=== PATIENT | female | born 1985 | race Caucasian/White ===

== ENCOUNTER 2017-11-26 05:47 | Observation (INO) ==
[2017-11-26] MEDS ORDERED: CALCIUM GLUCONATE 4.65mEq/10ml INJECTION IV PRN (05:54)
[2017-11-26] MEDS ORDERED: MAGNESIUM SULFATE 6gm PREMIX 6 GM/100 ML BAG IV ONE (05:54)
[2017-11-26] MEDS ORDERED: SALINE FLUSH 10ml SYRINGE IV PRN (05:54)
[2017-11-26] MEDS ORDERED: LIDOCAINE 1% (10mg/ml) 2mL INJ PF SDV ID ONE (05:54)
[2017-11-26] MEDS ORDERED: BETAMETHASONE 30 MG/5 ML INJECTION IM SCH (06:00)
[2017-11-26 06:37] VITALS: BMI 27.9
[2017-11-26 06:48] VITALS: BP 111/72; PULSE 93; RESP 16; TEMP 98; O2SAT 97
[2017-11-26] MEDS: MAGNESIUM SULFATE DRIP 20 GM/500 ML BAG IV SCH ×2 (06:50→16:37)
== END 2017-11-26 18:59 | disposition home or self-care (01) ==
LOC: OBOBS 05:47 → MC 05:47
PROVIDERS: ADMIT Obstetrics & Gynecology; ATTEND Obstetrics & Gynecology

== ENCOUNTER 2017-12-18 12:00 | Inpatient (IN) ==
[2017-12-25] MEDS ORDERED: FAMOTIDINE PB 20 MG/50 ML BAG IV ONE (10:13)
[2017-12-25] MEDS ORDERED: CITRIC ACID/SODIUM CITRATE 30ml PO ONE (10:13)
[2017-12-25] MEDS ORDERED: CEFAZOLIN PREMIX (MC ONLY) 2 GM/50 ML BAG IV ONE (10:14)
[2017-12-25] MEDS ORDERED: NOZIN NASAL SWAB NAS ONE (10:14)
[2017-12-25] MEDS: LR 1,000 ML IV SCH ×2 (10:45→12:27)
--- OUTSIDE RECORDS SUMMARY | 2017-12-25 10:47 | External Medical Summary | Continuity of Care Document ---
:1985 Author Organization [facility] Address [address] [place], [place] [id number] Phone Care Team Providers Name Role Phone Angus Armenta MD Unavailable Unavailable Allergies, Adverse Reactions, Alerts Substance Reaction Severity Status No Known Drug Allergies Unknown Active Medications Medication Instructions Dosage Effective Dates Status Comments (start - stop) ferrous sulfate 325 take 1 tablet by oral 325 MG - Active mg (65 mg iron) route 2 times every tablet day C-Augustin DHA 28 mg-1 TAKE 1 CAPSULE BY ORAL - Active mg-200 mg capsule ROUTE EVERY DAY Diclegis 10 mg-10 mg take 1 tablet by oral - Active tablet,delayed route every day in release the morning, 1 tablet in the mid-afternoon, and 2 tablets at bedtime Tylenol 325 mg tablet take 3 tablet by ORAL 975 MG - Active route every 4 days as needed as needed Problems Condition Effective Dates (start - stop) Clinical Status Follow-Up, Routine - Supervision of other high risk - pregnancies, second trimester Twin , - dichorionic/diamniotic, second trimester 15 weeks gestation of - Supervision of other high risk - pregnancies, second trimester Twin , - dichorionic/diamniotic, second trimester 18 weeks gestation of - Supervision of other high risk - pregnancies, first trimester Twin , - dichorionic/diamniotic, first trimester 11 weeks gestation of - Supervision of other high risk - pregnancies, first trimester Twin , - dichorionic/diamniotic, first trimester Pap Smear Screening, Cervix - 9 weeks gestation of - Supervision of other high risk - pregnancies, first trimester Twin , - dichorionic/diamniotic, first trimester 11 weeks gestation of - Supervision of other high risk - pregnancies, second trimester Twin , - dichorionic/diamniotic, second trimester 22 weeks gestation of - Supervision of other high risk - pregnancies, second trimester Twin , - dichorionic/diamniotic, second trimester 18 weeks gestation of - Supervision of other high risk - pregnancies, second trimester Twin , - dichorionic/diamniotic, second trimester 26 weeks gestation of - Supervision of other high risk - pregnancies, third trimester Twin , - dichorionic/diamniotic, third trimester 28 weeks gestation of - Supervision of other high risk - pregnancies, third trimester Mild to moderate pre-eclampsia, third - trimester Twin , - dichorionic/diamniotic, third trimester 33 weeks gestation of - Supervision of other high risk - pregnancies, third trimester Twin , - dichorionic/diamniotic, third trimester 30 weeks gestation of - Supervision of other high risk - pregnancies, third trimester Mild to moderate pre-eclampsia, third - trimester Twin , - dichorionic/diamniotic, third trimester 32 weeks gestation of - Supervision of other high risk - pregnancies, third trimester Mild to moderate pre-eclampsia, third - trimester Twin , - dichorionic/diamniotic, third trimester 35 weeks gestation of - Supervision of other high risk - pregnancies, third trimester Mild to moderate pre-eclampsia, third - trimester Twin , - dichorionic/diamniotic, third trimester 31 weeks gestation of - Supervision of other high risk - pregnancies, third trimester Mild to moderate pre-eclampsia, third - trimester Twin , - dichorionic/diamniotic, third trimester 34 weeks gestation of - Supervision of other high risk - pregnancies, third trimester Mild to moderate pre-eclampsia, third - trimester Twin , - dichorionic/diamniotic, third trimester 34 weeks gestation of - Supervision of other high risk - pregnancies, third trimester Twin , - dichorionic/diamniotic, third trimester 30 weeks gestation of - Mild to moderate pre-eclampsia, third - trimester Mild to moderate pre-eclampsia, third - trimester Twin , - dichorionic/diamniotic, third trimester 34 weeks gestation of - Twin , - dichorionic/diamniotic, second trimester 26 weeks gestation of - Active Procedures Procedure Date Unknown Results Test Name Date and Time Measure Units Reference Range Abnormal Flag Comments Unknown Advance Directives Directive Yes / No Effective Date File Name Unknown Encounters Encounter Practice Location Reason(s) Diagnoses Date Provider Care Team Description For Visit Members [facility] Supervision of Valorie Referring In Womens other high 1-201 Mayra. Provider: Health PA, risk 8 700 [address], pregnancies, Medical Coppola J, [place], [place], third Center 700 [id number], trimesterMiDuc goss Dr Medical [place] to moderate 120, Center tel:21 pre-eclampsia, Duc [place] 120, [address] third [facility] VALDEZ trimesterTwin [id number] [place], , , [place]. [id number]. dichorionic/di tel: tel:, [phone] third [email or web address] weeks gestation of [facility] Supervision of May-1 Valorie Referring In Womens other high 6-201 Mayra. Provider: Health PA, risk 8 700 [address], pregnancies, Medical Supriya Parekh [place], third Center 700 , trimesterMild , [facility] [place] to moderate 120, Center tel:+21 pre-eclampsia, [place], Duc 120, [address] third [place], [place], trimesterTwin [id number] [place], , , [place]. [id number]. dichorionic/di tel: tel:[phone] amniotic, [phone] third [email or web address] weeks gestation of [facility] Mild to May-1 Valorie Referring In Womens Ultrasound moderate 6-201 Mayra. Provider: Health PA, pre-eclampsia, 8 700 [address], third Medical Supriya Parekh [place], trimesterTwin Center 700 [id number], , , [facility] dichorionic/di 120, Center tel:+21 amniotic, [place], Duc 120, [address] third [place], [place], [id number] [place], weeks , [place]. [id number]. gestation of tel: tel:[phone] [facility] Supervision of May-1 Valorie Referring In Womens other high 1-201 Mayra. Provider: Health PA, risk 8 700 [address], pregnancies, Supriya Powers [place], third Center 700 [id number], trimesterMild Dr [facility] [place] to moderate 120, Center tel:21 pre-eclampsia, [place], Duc 120, [address] third [place], [place], trimesterTwin [id number] [place], , , [place]. [id number]. dichorionic/di tel: tel:+316 amniotic, [phone] third [email or web address] weeks gestation of [facility] Supervision of May-0 Valorie Referring In Womens other high 7-201 Mayra. Provider: Health PA, risk 8 700 [address], pregnancies, Supriya Powers [place], third Center 700 , trimesterMild , [facility] [place] to moderate 120, Center tel:+21 pre-eclampsia, [place], [facility] 120, [address] third [place] trimesterTwin [id number] [place], , , [place]. [id number]. dichorionic/di tel: tel:+316 amniotic, [phone] third [email or web address] weeks gestation of [facility] May-0 Gian Referring In Womens 4-201 Pedro. 700 Provider: Health STEFANO, 8 Medical [place] [address], Center Supriya Parekh [place], , [place] [id number], 120, Medical [place], [place] tel:+21 [place], [facility] 120, [id number] [place], , . [place], tel:[phone]. [id number] tel:[phone] [facility] Mild to May-0 Porter Referring In Womens moderate 3-201 Frances. Provider: Health STEFANO, pre-eclampsia, 8 700 [address], third [facility] Supriya [place], [place], trimester Center 700 [id number], , [facility] 120, [place] tel:+21 [facility] 120, [address] [place], [id number] [place], , [place]. [id number]. tel: tel:[phone] [facility] Supervision of Apr-3 Valorie Referring In Womens other high 0-201 Mayra. Provider: Health STEFANO, risk 8 700 [address], pregnancies, Medical Supriya [place], [place], third Center 700 [id number], trimesterMiana paula Smyth, [facility] to moderate 120, Center tel:+21 pre-eclampsia, Jim[place], [facility] 120, [address] third Jimenez VALDEZ trimesterTwin [id number] [place], , , [place]. [id number]. dichorionic/di tel: tel:+316 amniotic, [phone] third [email or web address] weeks gestation of [facility] Supervision of Apr-2 Valorie Referring In Womens other high 5-201 Mayra. Provider: Health STEFANO, risk 8 700 [address], pregnancies, Medical Abdon Cross, Supriya, JOSÉ MIGUEL, third Center 700 [id number], Akosua Smyth, [facility] to moderate 120, Center tel:[phone] pre-eclampsia, [place], Duc 120, [address] third [place], [place], trimesterTwin [id number] [place], , , [place]. [id number]. dichorionic/di tel: tel:[phone] amniotic, [phone] third [email or web address] weeks gestation of [facility] Supervision of Apr-1 Valorie Referring In Womens other high 8-201 Mayra. Provider: Health PA, risk 8 700 [address], pregnancies, [place], Supriya, [place], third Center 700 , Bro Smyth, [facility] , 120, [place] tel:+21 dichorionic/di Jim[place], Duc 120, [address] amniotic, [place], [place], third [id number] [place], [id number] , [place]. [id number]. weeks tel:+08-27 tel:+-316 gestation of [phone] [facility] Supervision of Apr-1 Valorie Referring In Womens Ultrasound other high 8-201 Mayra. Provider: Health PA, risk 8 700 [address], pregnancies, [place], Supriya, [place], third Center 700 [id number], Bro Smyth, [facility] , 120, Center tel:+21 dichorionic/di Jimenez, Duc 120, [address] amniotic, [place], [place], third [id number] [place], [email or web address] , [place]. [id number]. weeks tel:+08-27 tel:+-316 gestation of [phone] [facility] Supervision of Apr-0 Valorie Referring In Womens other high 4-201 Mayra. Provider: Health PA, risk 8 700 [address], pregnancies, [place], [place], [place], third Center 700 [id number], Bro Smyth, [facility] , 120, Center tel:+21 dichorionic/di Jimenez, Duc 120, [address] amniotic, [place], [place], third [id number] [place], [email or web address] , [place]. [id number]. weeks tel: tel:+316 gestation of [phone] [facility] Mar-2 Valorie In Womens 2-201 Mayra. Health STEFANO, 8 700 [address], Medical [place], [place], Center [id number], , [facility] [place] 120, tel: [place], [address] [place], [id number] , [place]. tel: [phone] Ginny [place] Supervision of Mar-2 Valorie Referring In Womens other high 1-201 Mayra. Provider: Health STEFANO, risk 8 700 [address], pregnancies, Supriya Powers [place], second Center 700 [id number], trimesterTwin , [facility] , 120, Center tel: dichorionic/di Jimenez, Duc 120, [address] amniotic, [place], [place], second [id number] [place], , [place]. [id number]. weeks tel: tel:+316 gestation of [phone] [facility] Twin Mar-2 Valorie Referring In Womens Ultrasound , 1-201 Mayra. Provider: Health STEFANO, dichorionic/di 8 700 [address], amniotic, Supriya Powers [place], second Center 700 [id number], [email or web address] , [facility] weeks 120, Center tel:21 gestation of [place], Duc 120, [address] [place], [place], [id number] [place], , [place]. [id number]. tel: tel:+ [phone] Ginny [place] Mar-1 Valorie In Womens 2-201 Mayra. Health STEFANO, 8 700 [address], [facility] [place], Center [id number], , [facility] 120, tel:+21 [place], [address] [place], [id number] , [place]. tel: [phone] Ginny [place] Supervision of Feb-2 Valorie Referring In Womens other high 1-201 Mayra. Provider: Health STEFANO, risk 8 700 [address], pregnancies, Supriya Powers JOSÉ MIGUEL, second Center 700 , Bor Smyth, [facility] , 120, Center tel:+ dichorionic/di [place], Duc 120, [address] amniotic, [place], [place], second [id number] [place], [email or web address] , [place]. [id number]. weeks tel:+31 tel:+316 gestation of [phone] [facility] Supervision of Valorie Referring In Womens other high 4-201 Mayra. Provider: Health PA, risk 8 700 [address], pregnancies, Supriya Powers, JOSÉ MIGUEL, second Center 700 , Bro Smyth, [facility] , 120, [place] tel: dichorionic/di Jim[place], Duc 120, [address] amniotic, [place], [place], second [id number] [place], [id number] , [place]. [id number]. weeks tel:+08-27 tel:+ gestation of [phone] [facility] Supervision of Valorie Referring In Womens Ultrasound other high 4-201 Mayra. Provider: Health PA, risk 8 700 [address], pregnancies, [place] Supriya, JOSÉ MIGUEL, second Center 700 [id number], Bro Smyth, [facility] , 120, [place] tel: dichorionic/di [place], Duc 120, [address] amniotic, [place], [place], second [id number] [place], [email or web address] , [place]. [id number]. weeks tel:+08-27 tel:+316 gestation of [phone] [facility] Supervision of 0 Valorie Referring In Womens other high 3-201 Mayra. Provider: Health PA, risk 8 700 [address], pregnancies, [place] Supriya, JOSÉ MIGUEL, second Center 700 , Bro Smyth, [facility] , 120, [place] tel:+ dichorionic/di [place], Duc 120, [address] amniotic, [place], [place], second [id number] [place], [email or web address] , [place]. [id number]. weeks tel:+31 tel:+-316 gestation of [phone] [facility] Supervision of Dec-0 Valorie Referring In Womens other high 6-201 Mayra. Provider: Health PA, risk 7 700 [address], pregnancies, [place] Cross [place], first Center 700 , Bro Smyth, [facility] , 120, Center tel: dichorionic/di Jimenez, Duc 120, [address] amniotic, [place], [place], first [id number] [place], [email or web address] , [place]. [id number]. weeks tel: tel:+316 gestation of [phone] [facility] Supervision of Dec-0 Valorie Referring In Womens Ultrasound other high 6-201 Mayra. Provider: Health PA, risk 7 700 [place] [address], pregnancies, Mazin Coppola Supriya Cross [place], first Center 700 , Bro Smyth, [facility] , 120, Center tel: dichorionic/di Jimenez, Duc 120, [address] amniotic, [place], [place], first [id number] [place], [email or web address] , [place]. [id number]. weeks tel: tel: gestation of [phone] [facility] Supervision of Nov-2 Valorie Referring In Womens other high 2-201 Mayra. Provider: Health PA, risk 7 700 [address], pregnancies, Mazin Coppola Supriya Cross, [place], first Center 700 [id number], Bro Smyth, [facility] , 120, Center tel:21 dichorionic/di Jimenez, Duc 120, [address] amniotic, [place], [place], first [id number] [place], trimesterPap , [place]. [id number]. Smear tel: tel: Screening, [phone] Cervix9 weeks gestation of [facility] Sep-0 Valorie Referring In Womens Follow-Up, 7-201 Mayra. Provider: Health PA, Routine 6 700 [address], Supriya Powers [place], Center [facility] [id number], Dr [facility] 120, [place] tel:21 Jim[place] [facility] 120, [address] [place], [place], [id number] [place], , [place]. [id number]. tel: tel:+ [phone] [facility] November- Valorie Referring In Womens 9-201 Mayra. Provider: Health PA, 6 700 [address], Medical [place], [place], [place] [id number], , [facility] 120, [place] [address] tel:+[phone] [place], [facility] 120, [address] [place], [place], [id number] [place], , [place]. [id number]. tel: tel: [phone] [facility] Jul-0 Coppola In Womens 4-201 Lucille. Health PA, 6 700 [address], [place], [place], [place] [id number], , [facility] 120, tel:+21 [place], [address] [place], [id number] , [place]. tel: [phone] Family History Family Member Diagnosis Age At Onset No family history of Breast Cancer No family history of Uterine Cancer No family history of Diabetes No family history of Lung Disease No family history of Epilepsy No family history of Kidney Disease No family history of Hypertension No family history of Colon Cancer No family history of Osteoporosis No family history of Thyroid Disorder No family history of Venous Thrombosis No family history of Stroke No family history of Ovarian Cancer No family history of Cardiovascular Disease No family history of Pulmonary Embolism Immunizations Vaccine Date Status Comments Tdap completed Source: New Immunization Record Influenza, injectable, completed Source: Other Provider quadrivalent, preservative free, 3 yrs or older Tdap completed Source: New Immunization Record Payers Payer name Insurance type Covered alliance party ID Authorization(s) [employer] CI [id number] [employer] CI [id number] [employer] CI [id number] Social History Type Description Quantity Date Captured Alcohol Use Details No Caffeine Use Details Unknown Tobacco Use Status Unknown Smoking Status Never smoker Vital Signs Date / Height Weight BMI Pulse Blood Temperature Respiratory Body Head BMI Time: Rate Pressure Rate Surface Circumference percentile Area Unknown Chief Complaint And Reason For Visit Unknown Chief Complaint And Reason For Visit Reason For Referral Reason For Referral Unknown Plan Of Care Date Type Action Status Appointment Britta Samson BOOKED [place]ment Britta Sams[place] [facility] [place] Future Order: Radiology Order Ultrasound < 14 wks ([id number]) Ordered Future Order: Radiology Order OB Detailed Complete Ultrasound Ordered ([id number]) Future Order: Radiology Order Complete OB Ultrasound > 14 Ordered Weeks ([id number]) Future Order: Radiology Order Ultrasound OB Follow-up ([id number]) Ordered Future Order: Radiology Order Ultrasound OB Follow-up ([id number]) Ordered Future Order: Radiology Order Ultrasound OB Follow-up ([id number]) Ordered Date Type Problem Goal Intervention Status Start Date Unknown. History Of Present Illness Encounter Date Complaint History Of Present Illness This patient has no known history of present illness Functional Status Encounter Date Functional Assessment Cognitive Assessment Unknown Medications Administered Medication Instructions Dosage Effective Dates (start - stop) Status Comments Drug Treatment Unknown Instructions Date Instruction Additional Information HIV and other routine tests risk factors identified by history anticipated course of care nutrition and weight gain counseling, special diet toxoplasmosis precautions (cats / raw meat) sexual activity exercise indications for ultrasound influenza vaccine environmental / work hazards travel use of any medications (including supplements, vitamins, herbs, OTC drugs) domestic violence seat belt use childbirth classes / hospital facilities hospital registration genetic testing new ob handbook Giving encouragement to exercise Related to Body mass index 27.0-27.9
--- OUTSIDE RECORDS SUMMARY | 2017-12-25 10:47 | External Medical Summary | Continuity of Care Document ---
:1985 Author Organization [facility] Address [address] [place], [place] [id number] Phone Care Team Providers Name Role Phone [...] of Valorie Referring In Womens other high 6-201 Mayra. Provider: Madi AGARWAL, risk 8 700 [place] [address], pregnancies, Supriya Powers [place], [facility] Center 700 [id number], trimesterMild , [facility] [place] to moderate 120, [place] tel:+21 [facility]-eclampsia, [facility], [address] third [place], Jimenez trimesterTwin [id number] [place], , , [place]. [id number]. dichorionic/di tel: tel: amniotic, [phone] third [id number] weeks gestation of [facility] Jimenez Mild to November- Valorie Referring In Womens Ultrasound moderate 6-201 Mayra. Provider: Madi AGARWAL, pre-eclampsia, 8 700 [place] [address], third Supriya Powers [place], trimesterTwin Center 700 , , Dr, [facility] dichorionic/di 120, Center tel:+21 amniotic, [place], Duc 120, [address] third [place], [place], [id number] [place], weeks , [place]. [id number]. gestation of tel: tel:[phone] [facility] Jimenez Supervision of Valorie Referring In Womens other high 1-201 Mayra. Provider: Health PA, risk 8 700 Lucille [address], pregnancies, Medical Supriya Parekh [place], third Center 700 , trimesterMild , [facility] to moderate 120, Center tel:+21 pre-eclampsia, [place], Duc 120, [address] third [place], [place], trimesterTwin [id number] [place], , , [place]. [id number]. dichorionic/di tel: tel:+-316 amniotic, [phone] third [id number] weeks gestation of [facility] Jimenez Supervision of November-0 Valorie Referring In Womens other high 7-201 Mayra. Provider: Health PA, risk 8 700 [place] [address], pregnancies, Supriya Powers [place], third Center 700 , trimesterMiana paula Smyth [facility] to moderate 120, Center tel:+21 pre-eclampsia, [place], Duc 120, [address] third [place], [place], trimesterTwin [id number] [place], , , [place]. [id number]. dichorionic/di tel: tel:+-316 amniotic, [phone] third weeks gestation of [facility] Jimenez Mild to May-0 Porter Referring In Womens moderate 3-201 Frances. Provider: Health PA, pre-eclampsia, 8 700 [address], third Supriya Powers [place], trimester Center 700 , Dr [facility] 120, Center tel:+21 [place], Duc 120, [address] [place], [place], [id number] [place], , [place]. [id number]. tel: tel:[phone] Ginny [place] Supervision of Apr-3 Valorie Referring In Womens other high 0-201 Mayra. Provider: Health PA, risk 8 700 [address], pregnancies, [place], third Center 700 [id number], trimesterMiana paula Smyth, [facility] to moderate 120, Center tel:+21 pre-eclampsia, Jimenez, Duc 120, [address] third JOSÉ MIGUEL, Jimenez trimesterThammad [id number] [place], , , [place]. [id number]. dichorionic/di tel: tel:+316 amniotic, [phone] third weeks gestation of [facility]enez Apr-2 Valorie Referring In Womens 8-201 Mayra. Provider: Health PA, 8 700 Luc[address], Mazin Supriya Par[place], [place], Center 700 [id number], Dr [facility] [place] 120, Center tel:+21 Jimenez [facility] 120, [address] [place], [id number] [place], , [place]. [id number]. tel: tel:[phone] Ginny [place] Supervision of Apr-2 Valorie Referring In Womens other high 5-201 Mayra. Provider: Health PA, risk 8 700 Lucille [address], pregnancies, [place], [place], third Center 700 , trimesterZac Smyth, [facility] to moderate 120, Center tel:21 pre-eclampsia, Jimenez, Duc 120, [address] third Jimenez VALDEZ trimesterTwin [id number] [place], , , [place]. [id number]. dichorionic/di tel: tel:+316 amniotic, [phone] third [id number] weeks gestation of [facility] Jimenez Supervision of Apr-1 Valorie Referring In Womens other high 8-201 Mayra. Provider: Health PA, risk 8 700 Lucille [address], pregnancies, [place], third Center 700 [id number], trimesterRobin Smyth, [facility] [place] , 120, Center tel:73078 dichorionic/di Jimenez, Duc 120, [address] amniotic, [place], [place], third [id number] [place], [email or web address] , [place]. [id number]. weeks tel:+08-27 tel:+1-316 gestation of [phone] [facility] Supervision of Apr-1 Valorie Referring In Womens Ultrasound other high 8-201 Mayra. Provider: Health PA, risk 8 700 [address], pregnancies, Medical [place], third Center [facility] , Bro Smyth, [facility] , 120, Herminie tel:+21 dichorionic/di Jimenez, Duc 120, [address] amniotic, [place], [place], third [id number] [place], [email or web address] , [place]. [id number]. weeks tel:+08-27 tel:+1-316 gestation of [phone] [phone] [facility] Supervision of Apr-0 Valorie Referring In Womens other high 4-201 Mayra. Provider: Health PA, risk 8 700 [address], pregnancies, Medical Supriya Parekh, [place], third [place] [address] , Bro Smyth, [facility] , 120, Center tel:+21 dichorionic/di Jimenez, Duc 120, [address] amniotic, [place], [place], third [id number] [place], [email or web address] , [place]. [id number]. weeks tel:+08-27 tel:+1-316 gestation of [phone] [facility] Mar-2 Valorie In Womens 2-201 Mayra. Health PA, 8 700 [address], Medical Supriya [place], Herm[place] [id number], , [facility] 120, tel:+21 [place], [address] [place], [id number] , [place]. tel: [phone] Ginny [place] Supervision of Mar-2 Valorie Referring In Womens other high 1-201 Mayra. Provider: Health PA, risk 8 700 [address], pregnancies, Medical Supriya Parekh, [place], second Center 700 , Bro Smyth, [facility] , 120, Herminie tel:+21 dichorionic/di Jimenez, Duc 120, [address] amniotic, [place], [place], second [id number] [place], [email or web address] , [place]. [id number]. weeks tel: tel: gestation of [phone] [facility] Twin Mar-2 Valorie Referring In Womens Ultrasound , 1-201 Mayra. Provider: Health PA, dichorionic/di 8 700 [address], amniotic, Supriya Powers [place], second Center 700 [id number], [email or web address] , [facility] weeks 120, Center tel: gestation of [place], [facility] 120, [address] [place], [place], [id number] [place], , [place]. [id number]. tel: tel: [phone] Ginny [place] Sep-1 Valorie In Womens 2-201 Mayra. Health PA, 8 700 [address], Medical Supriya [place], Center [id number], Dr [facility] 120, tel: [place], [address] [place], [id number] , [place]. tel: [phone] Ginny [place] Supervision of Aug- Valorie Referring In Womens other high 1-201 Mayra. Provider: Health PA, risk 8 700 [address], pregnancies, Supriya Powers [place], second Center 700 [id number], trimesterTwin , [facility] , 120, Center tel: dichorionic/di Jimenez, [facility] 120, [address] amniotic, JOSÉ MIGUEL, [place], second [id number] [place], , [place]. [id number]. weeks tel: tel: gestation of [phone] [phone] Associates iJmenez Supervision of Jul- Valorie Referring In Womens other high 4-201 Mayra. Provider: Health PA, risk 8 700 [address], pregnancies, Supriya Powers, JOSÉ MIGUEL, second Center 700 [id number], trimesterThammad Smyth, [facility] , 120, Center tel: dichorionic/di Jimenez, [facility] 120, [address] amniotic, [place], [place], second [id number] [place], [id number] , [place]. [id number]. weeks tel:+08-27 tel:+316 gestation of [phone] [phone] [facility] Supervision of Gideon-2 Valorie Referring In Womens Ultrasound other high 4-201 Mayra. Provider: Health STEFANO, risk 8 700 [address], pregnancies, Medical Co[place]ola [place], [place], second Center 700 , Bro Smyth, [facility] , 120, Center tel: dichorionic/di [place], Duc 120, [address] amniotic, [place], [place], second [id number] [place], [email or web address] , [place]. [id number]. weeks tel:+08-27 tel:+316 gestation of [phone] [phone] [facility] Jimenez Supervision of Gideon-0 Valorie Referring In Womens other high 3-201 Mayra. Provider: Health STEFANO, risk 8 700 [address], pregnancies, Mazin Coppola Supriya Cross, [place], second Center 700 , Bro Smyth, [facility] , 120, Center tel:21 dichorionic/di [place], Duc 120, [address] amniotic, [place], [place], second [id number] [place], [email or web address] , [place]. [id number]. weeks tel:+08-27 tel:+316 gestation of [id number] [phone] [facility] Supervision of Dec-0 Valorie Referring In Womens other high 6-201 Mayra. Provider: Health STEFANO, risk 7 700 [address], pregnancies, Mazin Supriya Parekh, JOSÉ MIGUEL, first Center 700 , Bro Smyth, [facility] , 120, Center tel:21 dichorionic/di [place], Duc 120, [address] amniotic, [place], [place], first [id number] [place], [email or web address] , [place]. [id number]. weeks tel:+08-27 tel:+316 gestation of [phone] [phone] [facility]enez Supervision of Dec-0 Valorie Referring In Womens Ultrasound other high 6-201 Mayra. Provider: Health STEFANO, risk 7 700 [address], pregnancies, Mazin Supriya Parekh, [place], first Center 700 , Bro Smtyh, [facility] , 120, Center tel:21 dichorionic/di Jimenez, Duc 120, [address] amniotic, [place], [place], first [id number] [place], [email or web address] , [place]. [id number]. weeks tel: tel:+316 gestation of [phone] [facility]enez Supervision of Nov-2 Valorie Referring In Womens other high 2-201 Mayra. Provider: Health STEFANO, risk 7 700 [address], pregnancies, Medical Abdon Cross, [place], [place], [facility] Center [facility] [id number], Bro Smyth, [facility] , 120, Center tel:21 dichorionic/di Jimenez, [facility] 120, [address] amniotic, [place], Jimenez, first [id number] [place], trimesterPap , [place]. [id number]. Smear tel: tel:316 Screening, [phone] [phone] Cervix9 weeks gestation of [facility] Jimenez Sep-0 Valorie Referring In Womens Follow-Up, 7-201 Mayra. Provider: Health STEFANO, Routine 6 700 [address], Maz[place] Cross [place], [place] [id number], , [facility] 120, Herminie tel:+21 Jimenez [facility] 120, [address] Jimenez VALDEZ, [id number] [place], , [place]. [id number]. tel: tel:+[phone] Ginny [place] November-1 Valorie Referring In Womens 9-201 Mayra. Provider: Health STEFANO, 6 700 Luc[address], [place], [place] [id number], , [facility] 120, Herminie tel:+21 Jimenez Duc 120, [address] JOSÉ MIGUEL, [place], [id number] [place], , [place]. [id number]. tel: tel:[phone] Ginny [place] Gideon-0 Abdon In Womens 4-201 Lucille. Health STEFANO, 6 700 [address], Mazin Epps [place], Herminie [id number], , [facility] 120, tel:[phone] Jim[place], [address] [place], [id number] , . tel: [phone] Family History Family Member Diagnosis Age At [...] Covered alliance party ID Authorization(s) [employer] CI [id number] Aetna CI [id number] A[employer]na CI [id number] Social History Type Description Quantity Date Captured Alcohol Use Details No Caffeine Use Details Unknown Tobacco Use Status Unknown Smoking Status Never smoker Vital Signs Date / Height Weight BMI Pulse Blood Temperature Respiratory Body Head BMI Time: Rate Pressure Rate Surface Circumference percentile Area 0 9:13 kg/m AM eter (2) 29.2 112/ 0 mm[Hg] 9:14 kg/m AM eter (2) Chief Complaint And Reason For Visit Unknown Chief Complaint And Reason For Visit Reason For Referral Reason For Referral Unknown Plan Of Care Date Type Action Status Appointment Britta Samson BOOKED Appointment Britta Samson BOOKED Appointment Britta Samson [facility] [place] [place] Primary C/S BOOKED Future Order: Radiology Order Ultrasound < 14 wks ([id number]) Ordered Future Order: Radiology Order OB Detailed Complete Ultrasound Ordered ([id number]) Future Order: Radiology Order Complete OB Ultrasound > 14 Ordered Weeks ([id number]) Future Order: Radiology Order Ultrasound OB Follow-up ([id number]) Ordered Future Order: Radiology Order Ultrasound OB Follow-up ([id number]) Ordered Future Order: Radiology Order Ultrasound OB Follow-up ([id number]) Ordered Date Type Problem Goal Intervention Status [...]
--- OUTSIDE RECORDS SUMMARY | 2017-12-25 10:48 | External Medical Summary | Continuity of Care Document ---
:1985 Author Organization [facility] Address [address] [place], [place] [id number] Phone Care Team Providers Name Role Phone [...] gestation of - Active Procedures Procedure Date OB Visit No Charge Results Test Name Date and Time Measure [...] [address], pregnancies, Medical Coppola J, [place], [place], third Center 700 [id number], trimesterZac Smyth, [facility] Medical [place] to moderate 120, Center tel:+21 pre-eclampsia, Duc [place] 120, [address] third Jimenez VALDEZ trimesterTwin [id number] [place], , , [place]. [id number]. dichorionic/di tel: tel:+316 amniotic, [id number] [phone] third [id number] weeks gestation of [facility] Jimenez Supervision of May-1 Valorie Referring In Womens other high 6-201 Mayra. Provider: Health PA, risk 8 700 Luc[place] [address], pregnancies, Medical Supriya Parekh [place], third Center 700 [id number], trimesterMild , [facility] [place] to moderate 120, Center tel:+21 pre-eclampsia, [place], Duc 120, [address] third [place], trimesterTwin [id number] [place], , , [place]. [id number]. dichorionic/di tel: tel:316 amniotic, [phone] [phone] third [id number] weeks gestation of [facility] Jimenez Mild to May-1 Valorie Referring In Womens Ultrasound moderate 6-201 Mayra. Provider: Madi AGARWAL, pre-eclampsia, 8 700 [place], third Supriya Powers [place], trimesterTwin Center 700 [id number], , , [facility] dichorionic/di 120, Center tel:21 amniotic, [place], Duc 120, [address] third [place], [id number] [place], weeks , [place]. [id number]. gestation of tel: tel:[phone] [facility]enez Supervision of May-1 Valorie Referring In Womens other high 1-201 Mayra. Provider: Health PA, risk 8 700 [place] [address], pregnancies, Supriya Powers [place], third Center 700 [id number], trimesterMild , [facility] [place] to moderate 120, Center tel:+21 pre-eclampsia, [place], Duc 120, [address] third [place]Jim[place], trimesterTwin [id number] [place], , , [place]. [id number]. dichorionic/di tel: tel:+316 amniotic, [phone] third [id number] weeks gestation of [facility] Jimenez Supervision of May-0 Valorie Referring In Womens other high 7-201 Mayra. Provider: Health PA, risk 8 700 [place] [address], pregnancies, Supriya Powers, [place], third Center 700 , trimesterMiana paula Smyth [facility] to moderate 120, Center tel:21 pre-eclampsia, [place], Duc 120, [address] third JOSÉ MIGUEL, Jimenez trimesterTwin [id number] [place], , , [place]. [id number]. dichorionic/di tel: tel:+316 amniotic, [phone] third [id number] weeks gestation of [facility] Jimenez Mild to May-0 Porter Referring In Womens moderate 3-201 Frances. Provider: Health PA, pre-eclampsia, 8 700 [address], third [place], [place], trimester Center 700 , Dr [facility] 120, Center tel:21 Jimenez [facility] 120, [address] [place], [id number] [place], , [place]. [id number]. tel: tel:+ [phone] Ginny [place] Supervision of Apr-3 Valorie Referring In Womens other high 0-201 Amyra. Provider: Health PA, risk 8 700 [address], pregnancies, Maz[place], third Center 700 [id number], trimesterMiana paula Smyth [facility] to moderate 120, Center tel:+21 pre-eclampsia, [place] Duc 120, [address] third JOSÉ MIGULEJimenez trimesterTwin [id number] [place], , , [place]. [id number]. dichorionic/di tel: tel:+316 amniotic, [phone] third [id number] weeks gestation of [facility] Jimenez Supervision of Apr-2 Valorie Referring In Womens other high 5-201 Mayra. Provider: Health PA, risk 8 700 Luc[place] [address], pregnancies, [place], third Center 700 , trimesterMiana paula Smyth [facility] to moderate 120, Center tel:21 pre-eclampsia, [place], Duc 120, [address] third [place], Jimenez trimesterTwin [id number] [place], , , [place]. [id number]. dichorionic/di tel:+1-31 tel:+1-316 amniotic, [id number] [phone] third [id number] weeks gestation of [facility] Jimenez Supervision of Apr-1 Valorie Referring In Womens other high 8-201 Mayra. Provider: Health PA, risk 8 700 [address], pregnancies, Medical Abdno Cross, [place], [place], third Center 700 [id number], Bro Smyth, [facility] , 120, Center tel: dichorionic/di Jimenez, Duc 120, [address] amniotic, [place], [place], third [id number] [place], , [place]. [id number]. weeks tel: tel:+316 gestation of [phone] [facility] Jimenez Supervision of Apr-1 Valorie Referring In Womens Ultrasound other high 8-201 Mayra. Provider: Health PA, risk 8 700 [place] [address], pregnancies, Medical Abdon Cross, [place], [place], third Center 700 [id number], Bro Smyth, [facility] , 120, Center tel: dichorionic/di Jimenez, Duc 120, [address] amniotic, [place], [place], third [id number] [place], [email or web address] , [place]. [id number]. weeks tel: tel: gestation of [phone] [facility] Jimenez Supervision of Apr-0 Valorie Referring In Womens other high 4-201 Mayra. Provider: Health PA, risk 8 700 Luc[address], pregnancies, Mazin Cross, [place], [place], third Center 700 [id number], Bro Smyth, [facility] , 120, [place] tel:21 dichorionic/di Jimenez, Duc 120, [address] amniotic, [place], [place], third [id number] [place], [email or web address] , [place]. [id number]. weeks tel: tel:+316 gestation of [id number] [phone] [facility] Jimenez Mar-2 Valorie In Womens 2-201 Mayra. Health PA, 8 700 [address], Medical [place], [place], Center [id number], , [facility] 120, tel:+21 Jim[place], [address] [place], [id number] , [place]. tel: [phone] Ginny [place] Supervision of Sep-2 Valorie Referring In Womens other high 1-201 Mayra. Provider: Health PA, risk 8 700 [address], pregnancies, Medical Supriya Parekh, JOSÉ MIGUEL, second Center 700 [id number], trimesterThammad Smyth, [facility] , 120, Center tel: dichorionic/di Jimenez, Duc 120, [address] amniotic, [place], [place], second [id number] [place], [email or web address] , [place]. [id number]. weeks tel: tel:+316 gestation of [phone] Ginny [place] Twin Sep-2 Valorie Referring In Womens Ultrasound , 1-201 Mayra. Provider: Health PA, dichorionic/di 8 700 [address], amniotic, Supriya [place], [place], second Center 700 [id number], [email or web address] , [facility] weeks 120, Center tel: gestation of [place], [facility] 120, [address] [place], [place], [id number] [place], , [place]. [id number]. tel: tel: [phone] Ginny [place] Sep-1 Valorie In Womens 2-201 Mayra. Health PA, 8 700 [address], Medical [place], [place], Center [id number], , [facility] [place] 120, tel: Jim[place], [address] [place], [id number] , [place]. tel: [phone] Ginny [place] Supervision of Aug-2 Valorie Referring In Womens other high 1-201 Mayra. Provider: Health PA, risk 8 700 Lucille [address], pregnancies, Supriya Powers, [place], second Center 700 [id number], Bro Smyth, [facility] , 120, Center tel: dichorionic/di Jimenez, Duc 120, [address] amniotic, [place], [place], second [id number] [place], [id number] , [place]. [id number]. weeks tel: tel:+316 gestation of [phone] [phone] [facility] Jimenez Supervision of Jul-2 Valorie Referring In Womens other high 4-201 Mayra. Provider: Health PA, risk 8 700 Lucille [address], pregnancies, Supriya Powers [place], second Center 700 , Bro Smyth, [facility] , 120, Center tel:+21 dichorionic/di [place], Duc 120, [address] amniotic, [place], [place], second [id number] [place], [email or web address] , [place]. [id number]. weeks tel:+31 tel:+1-316 gestation of [phone] [phone] [facility] Jimenez Supervision of Jul-2 Valorie Referring In Womens Ultrasound other high 4-201 Mayra. Provider: Health PA, risk 8 700 [place], pregnancies, Supriya Powers, JOSÉ MIGUEL, second Center 700 , Bro Smyth, [facility] , 120, Center tel:+21 dichorionic/di [place], Duc 120, [address] amniotic, [place], [place], second [id number] [place], [email or web address] , [place]. [id number]. weeks tel:+31 tel:+1-316 gestation of [phone] Associates Jimenez Supervision of Gideon-0 Valorie Referring In Womens other high 3-201 Mayra. Provider: Health PA, risk 8 700 Lucille [address], pregnancies, Supriya Powers, JOSÉ MIGUEL, second Center 700 [id number], Bro Smyth, [facility] , 120, Center tel:+21 dichorionic/di [place], Duc 120, [address] amniotic, [place], [place], second [id number] [place], [email or web address] , [place]. [id number]. weeks tel:+31 tel:+1-316 gestation of [phone] [facility] Jimenez Supervision of Dec-0 Valorie Referring In Womens other high 6-201 Mayra. Provider: Health PA, risk 7 700 Lucille [address], pregnancies, Supriya Powers, JOSÉ MIGUEL, first Center 700 [id number], Bro Smyth, [facility] , 120, Center tel:+21 dichorionic/di [place], Duc 120, [address] amniotic, [place], [place], first [id number] [place], [email or web address] , [place]. [id number]. weeks tel: tel:316 gestation of [id number] [phone] Associates Jimenez Supervision of Dec-0 Valorie Referring In Womens Ultrasound other high 6-201 Mayra. Provider: Health PA, risk 7 700 [place] [address], pregnancies, Supriya Powers [place], first Center 700 [id number], Bro Smyth, [facility] , 120, Center tel:21 dichorionic/di iJmenez, [facility] 120, [address] amniotic, [place], [place], first [id number] [place], [email or web address] , [place]. [id number]. weeks tel: tel:316 gestation of [phone] [phone] [facility] Jimenez Supervision of Nov-2 Valorie Referring In Womens other high 2-201 Mayra. Provider: Health PA, risk 7 700 Lucille [address], pregnancies, Supriya Powers [place], first Center 700 [id number], Bro Smyth, [facility] , 120, Center tel:21 dichorionic/di Jimenez, [facility] 120, [address] amniotic, [place], [place], first [id number] [place], trimesterPap , [place]. [id number]. Smear tel: tel:316 Screening, [phone] [phone] Cervix9 weeks gestation of [facility] Jimenez Sep-0 Valorie Referring In Womens Follow-Up, 7-201 Mayra. Provider: Health STEFANO, Routine 6 700 [place] [address], Supriya Powers [place], Center 700 [id number], , [facility] 120, [place] tel:21 Jimenez, [facility] 120, [address] JOSÉ MIGUEL, [place], [id number] [place], , [place]. [id number]. tel: tel:+316 [phone] Ginny [place] May-1 Valorie Referring In Womens 9-201 Mayra. Provider: Health STEFANO, 6 700 Lucille [address], Supriya Powers [place], Center [facility] [id number], [facility] 120, Center tel:21 Jimenez [facility] 120, [address] [facility], [id number] [place], , [place]. [id number]. tel: tel: [phone] Ginny [place] Abdon In Womens 4-201 Lucille. [facility], 6 700 [address], [facility] [id number], , [facility] 120, tel: Jimenez, [address] [place], [id number] , [place]. tel: [phone] Family History Family Member Diagnosis Age At [...] Record Payers Payer name Insurance type Covered democrat ID Authorization(s) Aetna CI [id number] Aetna CI [id number] Aetna CI [id number] Social History Type Description Quantity Date Captured [...] Appointment Britta Samson BOOKED Appointment Britta Samson [facility] [place] Primary C/S BOOKED Future Order: Radiology Order Ultrasound < 14 wks ([id number]) Ordered Future Order: Radiology Order OB Detailed Complete Ultrasound Ordered ([id number]) Future Order: Radiology Order Complete OB Ultrasound > 14 Ordered Weeks ([id number]) Future Order: Radiology Order Ultrasound OB Follow-up ([id number]) Ordered Future Order: Radiology Order Ultrasound OB Follow-up ([id number]) Ordered Future Order: Radiology Order Ultrasound OB Follow-up ([id number]) Ordered Date Type Problem Goal Intervention Status [...]
[2017-12-25] MEDS ORDERED: MORPHINE SULFATE PF 5mg/10ml INJ (Duramorph) ONE (11:49)
[2017-12-25] MEDS ORDERED: FentaNYL 250 MCG/5 ML INJECTION ONE (11:50)
--- NOTE | 2017-12-25 11:52 | Anesthesia Preoperative Report ---
Anesthesia Preoperative Record - Date and Time Date: 12/25/17 Preoperative Diagnosis: Scheduled C Section Proposed Procedure: NPO Since Date: 12/25/17 NPO Since Time: 00:00 Allergies/Adverse Reactions: Allergies Allergy/AdvReac Type Severity Reaction Status Date / Time No Known Allergies Allergy Verified 11/26/17 07:02 - Vital Signs Vital Signs: Temperature 98.1 F 12/25/17 11:04 Pulse Rate 79 12/25/17 11:04 Respiratory Rate 16 12/25/17 11:04 Blood Pressure 127/82 12/25/17 11:04 Pulse Oximetry 98 12/25/17 11:04 - Medications Inpatient Medications: Current Medications Lactated Ringer's (Lactated Ringers) 1,000 mls @ 150 mls/hr IV .[id number] ANJELICA Last Admin: 12/25/17 10:45 Dose: 150 mls/hr Home Medications: Home Medications Medication Instructions Recorded Confirmed Type Pnv95/Ferrous Fumarate/FA 1 tab PO DAILY #0 tab 01/26/16 12/25/17 History [ Tablet] Docusate Calcium [Stool Softener] 240 mg PO DAILY #30 cap 02/23/16 12/25/17 Rx Doxylamine/Pyridoxine HCl (B6) 10 mg PO DAILY PRN 11/26/17 12/25/17 History [Deshawn Smyth 10-10 mg Tablet] Ferrous Sulfate [Iron] 325 mg PO DAILY 11/26/17 12/25/17 History Is Patient on Beta Aurelia?: No - Medical History Respiratory: DENIES: Asthma, Bronchitis, Chronic Obstructive Pulmonary Disease (COPD), Dyspnea, Orthopnea, Pulmonary Embolism, Pneumonia, Upper Respiratory Infection, Pulmonary Edema, Sleep Apnea, Tuberculosis, Other Cardiovascular: DENIES: Abnormal EKG, Angina, Arrhythmia, Congestive Heart Failure, Coronary Artery Disease, Heart Murmur, Hypertension, Hypotension, High Cholesterol, Myocardial Infarction, Rheumatic Fever, Valvular Heart Disease, Other Gastrointestional: DENIES: Obstructive Bowel, Hepatitis, Cirrhosis, Nausea or Vomiting Present, Gastroesophageal Reflux Disease, Gastrointestinal Bleeding, Hiatal Hernia, Ulcer , Morbid Obesity, Other Neuro/Musculoskeletal: Denies: Back Problems, Cerebrovascular Accident, Depression, Headaches, Loss of Consciousness, Muscle Weakness, Neuromuscular Disorder, Paralysis, Paresthesia, Syncope, Seizures, Other Renal/Endocrine: DENIES: Diabetes Mellitus Type 1, Diabetes Mellitus Type 2, Renal Failure, Dialysis, Thyroid Disease, Weight Loss, Weight Gain, Other Other History: Reports: Now - Surgical History HEENT Surgeries: Reports: Other (wisdom teeth removed 15 yrs ago) Reproductive Surgery/Treatment: DENIES: Section Anesthesia Reactions: None Hx Family Anesthesia Reaction: No History of Motion Sickness: No - Social History Smoking Status: Never smoker Hx Chewing Tobacco Use: No Second Hand Exposure: No Substance Use Type: does not use Alcohol Intake Frequency: does not drink - Pertinent Findings Laboratory: CBC and BMP 12/25/17 10:40 - Physical Exam Respiratory Exam: Present: lungs clear, bilateral breath sounds equal Cardiovascular Exam: Present: regular rate and rhythm, no murmur - Airway Assessment Mallampati Score: II TMD: 2 Fingerbreadths Neck Extension: good Overall Assessment: no airway concerns - ASA ASA Score: 2 - Plan Regional/Trunk Block: Spinal - Discussion Discussion: Discussed risks/options/alternatives of anesthesia and questions answered. Patient consents. Nursing pain assessment noted. Present for Discussion: spouse Attestation Statement: Prior to the delivery of any anesthetic medication, I examined the patient, developed the plan, obtained the patient's consent and discussed the risk and benefits of the procedure with the patient/guardian. - Additional Information Seen by Anesthesia: Yes
[2017-12-25] MEDS ORDERED: LIDOCAINE 2%/EPI 1:200,000 20ml SDV PF ONE (12:15)
[2017-12-25] MEDS ORDERED: SODIUM BICARBONATE 8.4% (50mEq/50ml) VIAL IV ONE (12:15)
[2017-12-25] MEDS ORDERED: MIDAZOLAM 2mg/2ml INJECTION ONE (12:53)
[2017-12-25] MEDS ORDERED: NALBUPHINE 10 MG/ML INJECTION IVP PRN (13:17)
[2017-12-25] MEDS ORDERED: ONDANSETRON 4 MG/2 ML INJECTION IVP PRN (13:17)
[2017-12-25] MEDS ORDERED: NALOXONE 2 MG/2 ML INJECTION PFS IVP PRN (13:17)
[2017-12-25] MEDS: D5LR 1,000 ML IV SCH (13:25)
[2017-12-25] MEDS ORDERED: SIMETHICONE 80 MG CHEWABLE TABLET PO PRN (14:00)
[2017-12-25] MEDS ORDERED: CALCIUM CARBONATE Chewable 500mg TABLET PO PRN (14:00)
[2017-12-25] MEDS ORDERED: OXYTOCIN DRIP 30 UNIT/500 ML ML IV SCH (14:00)
[2017-12-25] MEDS ORDERED: ACETAMINOPHEN 500 MG TABLET PO PRN (14:00)
[2017-12-25] MEDS ORDERED: HYDROCORTISONE 2.5% CREAM 30gm RECTALLY PRN (14:00)
[2017-12-25] MEDS ORDERED: DiphenhydrAMINE 25 MG CAPSULE PO PRN (14:00)
[2017-12-25] MEDS ORDERED: TRANEXAMIC ACID 1,000 MG in NS 100 ML IV ONE (14:01)
[2017-12-25] MEDS ORDERED: METHYLERGONOVINE 0.2 MG/ML INJECTION IM ONE (14:40)
[2017-12-25] MEDS ORDERED: OXYTOCIN BOLUS BAG 30 UNIT/500 ML ML IV SCH (14:45)
[2017-12-25] MEDS ORDERED: METOCLOPRAMIDE 10mg/2ml INJECTION IVP PRN (16:39)
[2017-12-25] MEDS ORDERED: ONDANSETRON 4 MG TABLET PO PRN (17:13)
[2017-12-25] MEDS ORDERED: SCOPOLAMINE 1mg/3 days PATCH (Eq. 1.5 Patch) TD ONE (17:14)
[2017-12-25] MEDS: IBUPROFEN 800 MG TABLET PO PRN (20:59)
[2017-12-25] MEDS: SIMETHICONE 80 MG CHEWABLE TABLET PO SCH ×2 (21:01)
[2017-12-26] MEDS: D5LR 1,000 ML IV SCH (01:35)
[2017-12-26] MEDS: IBUPROFEN 800 MG TABLET PO PRN ×3 (05:26→23:43)
--- NOTE | 2017-12-26 07:46 | Operative Note ---
DATE OF PROCEDURE 12/25/2017 PREOPERATIVE DIAGNOSES 1. Term . 2. Di/di twins. 3. Preeclampsia with mild features. 4. Breech presentation of Twin A. PROCEDURE Primary low transverse section. SURGEON Mayra Eugene MD [employer] Romaine Amaya, DO ANESTHESIA Combo spinal-epidural. ANESTHESIA PROVIDER Gal Doyle CRNA EBL 800 ml DESCRIPTION OF PROCEDURE Ms. Samson was brought to the OR and given regional analgesia to good effect. She was then placed on the OR table in a supine position with left lateral displacement. A Bailey catheter was placed to dependent drain. The abdomen was prepped and draped in the usual sterile fashion. A Pfannenstiel skin incision was made with a sharp knife. This was carried down to fascia. Fascia was incised transversely. Fascia was then bluntly and sharply dissected free of the rectus muscles. Rectus muscles were bluntly divided. Peritoneum was tented up and sharply entered. This was then extended vertically. The bladder blade was inserted. The bladder was noted to be well below our area of operation. A low transverse uterine incision was made with a sharp knife. This was then bluntly extended with my fingers vertically. The amniotic fluid was entered for Baby A and was copious and clear. Baby was delivered. This was a single footling breech which we converted to a hardeep breech and delivered without difficulty. Baby was bulb suctioned on the abdomen. Cord was doubly clamped and cut and the baby was given to Dr. Burk and her team for care. This is a liveborn female with Apgars of 8/9/9. She weighed 7 pounds, 1.2 ounces. Within moments the second bag had descended. We entered that sharply. There was again copious clear amniotic fluid. Baby was delivered in the vertex presentation. Baby was bulb suctioned on the abdomen. Cord was doubly clamped and cut and the baby was given to the pediatric team for care. This is a liveborn female with Apgars of 9/9. She weighed 6 pounds 12 ounces. The placentas were then expressed intact. They had normal configurations and normal -appearing three-vessel cords. They were separate with a thick membrane as previously described. The uterine cavity was swept clear of membranes and the uterus exteriorized. We then reapproximated the myometrium with a running- locking 0 Monocryl. There was an area on the right that was not hemostatic. This was controlled with a 2-0 chromic wjosnc-ml-peagm suture. We inspected carefully for hemostasis. It was under good control. Uterus, tubes and ovaries were noted to be grossly normal. We removed blood clots from the abdomen and returned the pelvic organs to the abdominal cavity. We reinspected our myometrial incision which remained hemostatic. I then reapproximated peritoneum with a running nonlocking 0 Monocryl. Fascia was reapproximated with a running nonlocking 0 Vicryl. I placed a subcutaneous suture of running nonlocking 2-0 chromic. Then skin edges were reapproximated with a subcuticular style 3-0 undyed Vicryl. The wound was dressed with Steri-Strips and a sterile dressing. Counts were correct postoperatively x 2. The urine remained clear and free-flowing throughout the procedure. Ms. Samson was then transferred to recovery in stable condition. PALOMA
[2017-12-26] MEDS: HYDROCODONE/APAP 5mg/325mg TABLET PO PRN ×3 (10:09→19:25)
[2017-12-26] MEDS: DOCUSATE CALCIUM 240 MG CAPSULE PO SCH (10:09)
[2017-12-26] MEDS: SIMETHICONE 80 MG CHEWABLE TABLET PO SCH ×3 (10:09→22:17)
--- NOTE | 2017-12-26 16:47 | Progress Note ---
OB PP Progress Note Free Text - Date Date: 12/26/17 - Progress Note Progress Note: POD1 e/p c/s vss af doing ok disc hgb drop cont care path q&a-krb
[2017-12-27] MEDS: IBUPROFEN 800 MG TABLET PO PRN ×2 (07:34→15:40)
[2017-12-27] MEDS: DOCUSATE CALCIUM 240 MG CAPSULE PO SCH (10:22)
[2017-12-27] MEDS: SIMETHICONE 80 MG CHEWABLE TABLET PO SCH ×3 (10:22→13:20)
--- NOTE | 2017-12-27 11:31 | Progress Note ---
OB PP Progress Note Free Text - Date Date: 12/27/17 - Progress Note Progress Note: vss af doing well unsure of home today or tomorrow q&a-krb
[2017-12-27 16:17] VITALS: BP 128/78; PULSE 68; RESP 16; TEMP 98.5; O2SAT 100
[2017-12-28] MEDS ORDERED: SCOPOLAMINE PATCH REMOVAL TD SCH (17:45)
== END 2017-12-27 17:30 | disposition home or self-care (01) | DRG 766 ==
LOC: MC 12-25 09:54
PROVIDERS: ADMIT Obstetrics & Gynecology; ATTEND Obstetrics & Gynecology